=== PATIENT | female | born 1995 | race American Indian/Alaskan Native ===

== ENCOUNTER 2019-01-27 17:31 | Emergency (ER) | payer BC ==
[2019-01-27 17:55] VITALS: BP 125/98
--- NOTE | 2019-01-27 18:02 | Emergency Department Report ---
Blank Doc - Documentation Documentation: c/o vaginal discharge with odor and possible preg This initial assessment diagnostic orders/clinical plan/treatment (s) is/Are subject change based on patient's health status, clinical progression and re- assessment by fellow clinical providers in the ED. Further treatment and work-up at subsequent clinical providers discretion. Patient/guardians urged not to elope from their condition may be serious if not clinically assessed and managed. Initial order include:
[2019-01-27 18:36] LABS: Bilirubin,Urine NEG (Negative); Blood,Urine NEG (Negative); Color,Urine Straw (Yellow); Protein,Urine <15 mg/dL mg/dL (Negative); Urobilinogen,Urine < 2.0 mg/dL (<2.0)
[2019-01-27 18:38] LABS: HCG Qualitative,Urine Negative (Negative)
--- NOTE | 2019-01-27 21:04 | Emergency Department Report ---
ED Female HPI - General Chief complaint: Urogenital-Female Stated complaint: ABD/VAGINAL ODOR/PAIN Time Seen by Provider: 01/27/19 19:56 Source: patient Mode of arrival: Ambulatory Limitations: No Limitations - History of Present Illness Initial comments: Patient is 23 y/o aaf who presents for vaginal discharge white thick malodorous x 5 days pt states no concern for STD as she has been with same partner for past 5 yrs , pt is G2, P!, A1 ectopic , LMP 2 weeks ago, there is no abdominal pain no n/v no fever or chills no back pain no dysuria frequency or urgency. Complaint: vaginal discharge Onset/Timin -: days(s) Severity scale (0 -10): 3 Quality: other (irritation ) Consistency: constant Improves with: none Worsens with: none Are you Now?: No Last Menstrual Period: 01/12/19 EDC: 10/19/19 Associated Symptoms: vaginal discharge - Related Data Sexually active: Yes : 2 Para: 1 A: 1 (ectopic ) Previous Rx's Medication Instructions Recorded Last Taken Type Ibuprofen 800 mg PO TID PRN #30 tablet 01/27/19 Unknown Rx metroNIDAZOLE [Flagyl] 500 mg PO BID 10 Days #20 tab 01/27/19 Unknown Rx Allergies Allergy/AdvReac Type Severity Reaction Status Date / Time No Known Allergies Allergy Verified 01/27/19 17:34 ED Review of Systems ROS: Stated complaint: ABD/VAGINAL ODOR/PAIN Other details as noted in HPI Constitutional: denies: chills, fever Eyes: denies: eye pain, eye discharge, vision change ENT: denies: ear pain, throat pain Respiratory: denies: cough, shortness of breath, wheezing Cardiovascular: denies: chest pain, palpitations Endocrine: no symptoms reported Gastrointestinal: denies: abdominal pain, nausea, diarrhea Genitourinary: discharge (white thick malodorous ). denies: urgency, dysuria, frequency, hematuria, abnormal menses, dyspareunia Musculoskeletal: denies: back pain, joint swelling, arthralgia Skin: denies: rash, lesions Neurological: denies: headache, weakness, paresthesias Psychiatric: denies: anxiety, depression Hematological/Lymphatic: denies: easy bleeding, easy bruising ED Past Medical Hx - Past Medical History Previous Medical History?: No - Surgical History Additional Surgical History: D&C - Social History Smoking Status: Never Smoker Substance Use Type: Alcohol - Medications Home Medications: Home Medications Medication Instructions Recorded Confirmed Last Taken Type Ibuprofen 800 mg PO TID PRN #30 tablet 01/27/19 Unknown Rx metroNIDAZOLE [Flagyl] 500 mg PO BID 10 Days #20 tab 01/27/19 Unknown Rx ED Physical Exam - General Limitations: No Limitations General appearance: alert, in no apparent distress - Head Head exam: Present: atraumatic, normocephalic - Eye Eye exam: Present: normal appearance - ENT ENT exam: Present: mucous membranes moist - Neck Neck exam: Present: normal inspection - Respiratory Respiratory exam: Present: normal lung sounds bilaterally - GI/Abdominal GI/Abdominal exam: Present: soft, normal bowel sounds. Absent: distended, tenderness, rebound, bruit, hernia - Rectal Rectal exam: Present: deferred - External exam: Present: normal external exam Speculum exam: Present: erythema, vaginal discharge (white thick malodorous ). Absent: cervical discharge, vaginal bleeding, foreign body, tissue, laceration Bi-manual exam: Present: normal bi-manual exam. Absent: cervical motion tendernes, adnexal tenderness, adnexal mass, uterine enlargement, uterine tenderness - Extremities Exam Extremities exam: Present: normal inspection, full ROM, normal capillary refill. Absent: tenderness, pedal edema, joint swelling, calf tenderness - Back Exam Back exam: Present: normal inspection, full ROM. Absent: tenderness, CVA tenderness (R), CVA tenderness (L), rash noted - Neurological Exam Neurological exam: Present: alert, oriented X3 - Psychiatric Psychiatric exam: Present: normal affect, normal mood - Skin Skin exam: Present: warm, dry, intact, normal color. Absent: rash ED Course Vital Signs 01/27/19 17:53 Temperature 98 F Pulse Rate 75 Respiratory 20 Rate Blood Pressure 125/98 O2 Sat by Pulse 100 Oximetry ED Medical Decision Making - Lab Data Labs 01/27/19 17:34 Urine Color Straw Urine Turbidity Clear Urine pH 7.0 Ur Specific [place] 1.010 Urine Protein <15 mg/dl Urine Glucose (UA) Neg Urine Ketones Neg Urine Blood Neg Urine Nitrite Neg Urine Bilirubin Neg Urine Urobilinogen < 2.0 Ur Leukocyte Esterase Tr Urine WBC (Auto) 1.0 Urine RBC (Auto) 0.0 U Epithel Cells (Auto) 1.0 Urine HCG, Qual Negative Wet prep normal , no clues, no Trich, - Medical Decision Making UA normal, Wet prep normal, HCG: negative, exam: mild white thick vaginal discharge with moderate erythema no CMT pain . plan : Flagyl 500 mg po bid x 10 days follow up with pcp in 7-10 days pt verbalized agreement with same, will dc to home with rx for flagyl 1gm daily. Critical care attestation.: If time is entered above; I have spent that time in minutes in the direct care of this critically ill patient, excluding procedure time. ED Disposition Clinical Impression: Vaginitis Qualifiers: Chronicity: acute Qualified Code(s): N76.0 - Acute vaginitis Disposition: DC-01 TO HOME OR SELFCARE Is pt being admited?: No Does the pt Need Aspirin: No Condition: Stable Instructions: Vaginitis (ED) Prescriptions: Ibuprofen 800 mg PO TID PRN #30 tablet PRN Reason: Pain metroNIDAZOLE [Flagyl] 500 mg PO BID 10 Days #20 tab Referrals: DAVID ETRESA MD [Primary Care Provider] - 3-5 Days Forms: Work/School Release Form(ED) Time of Disposition: 21:42
== END 2019-01-27 21:50 | disposition home or self-care (01) ==
LOC: ED 17:31
DX: N76.0 Acute vaginitis (principal)
CPT/HCPCS: 81001; 81025; 87210; 87591

== ENCOUNTER 2019-02-08 13:48 | Emergency (ER) | payer BC ==
[2019-02-08 13:56] VITALS: BP 134/84
--- NOTE | 2019-02-08 13:59 | Emergency Department Report ---
Blank Doc - Documentation Documentation: 23 y/o with constipation and abdominal pain since thursday. no fever or diarrhea no dysuria
[2019-02-08 14:34] LABS: Bacteria,Urine 1+ /HPF (Negative); Bilirubin,Urine NEG (Negative); Blood,Urine NEG (Negative); Color,Urine Straw (Yellow); Protein,Urine <15 mg/dL mg/dL (Negative); Urobilinogen,Urine < 2.0 mg/dL (<2.0)
[2019-02-08 14:37] LABS: HCG Qualitative,Urine Negative (Negative)
--- NOTE | 2019-02-08 15:18 | XRay Report ---
ABDOMINAL SERIES: History: Constipation, abdominal pain. Erect chest film shows no acute or significant changes involving the heart or lung davidson. There is no evidence of free air beneath the diaphragms. The gas pattern within the abdomen is unremarkable. There is no evidence of bowel dilatation, significant air-fluid levels, or masses. Organ shadows are unremarkable. IMPRESSION: Abdominal series within normal limits.
--- NOTE | 2019-02-08 16:45 | Emergency Department Report ---
ED Abdominal Pain HPI - General Chief Complaint: Abdominal Pain Stated Complaint: ABD PAIN Time Seen by Provider: 02/08/19 13:57 Source: patient Mode of arrival: Ambulatory Limitations: No Limitations - History of Present Illness Initial Comments: Pt is a 23 yo female who presents to the ED with c/o generalized abdominal cramping that began three days ago. The patient states she has been feeling constipation or having a difficult time having a BM. She denies any N/V/D, decreased appetite, fever, urinary sx, vaginal itching, vaginal burning, discolored or foul odor vaginal discharge. The patient does have a PCP but has not seen them. She has not taken anything for the abdominal pain or the constipation. Severity scale (0 -10): 0 - Related Data Previous Rx's Medication Instructions Recorded Last Taken Type Ibuprofen 800 mg PO TID PRN #30 tablet 01/27/19 Unknown Rx Dicyclomine [Bentyl] 10 mg PO QID #20 capsule 02/08/19 Unknown Rx Docusate Sodium [Colace] 100 mg PO BID PRN #20 capsule 02/08/19 Unknown Rx Simethicone [Gas Relief] 125 mg PO DAILY PRN #20 capsule 02/08/19 Unknown Rx Allergies Allergy/AdvReac Type Severity Reaction Status Date / Time No Known Allergies Allergy Verified 02/08/19 13:50 ED Review of Systems ROS: Stated complaint: ABD PAIN Other details as noted in HPI Comment: All other systems reviewed and negative ED Past Medical Hx - Past Medical History Previous Medical History?: No - Surgical History Additional Surgical History: D&C - Social History Smoking Status: Never Smoker Substance Use Type: None - Medications Home Medications: Home Medications Medication Instructions Recorded Confirmed Last Taken Type Ibuprofen 800 mg PO TID PRN #30 tablet 01/27/19 Unknown Rx Dicyclomine [Bentyl] 10 mg PO QID #20 capsule 02/08/19 Unknown Rx Docusate Sodium [Colace] 100 mg PO BID PRN #20 capsule 02/08/19 Unknown Rx Simethicone [Gas Relief] 125 mg PO DAILY PRN #20 capsule 02/08/19 Unknown Rx ED Physical Exam - General Limitations: No Limitations General appearance: alert, in no apparent distress, other (pt is eating cheetohs and drinking a drink from [employer], non toxic appearing) - Head Head exam: Present: atraumatic, normocephalic - Eye Eye exam: Present: normal appearance - ENT ENT exam: Present: normal exam - Respiratory Respiratory exam: Present: normal lung sounds bilaterally. Absent: respiratory distress, wheezes, rales, rhonchi, stridor, chest wall tenderness, accessory muscle use, decreased breath sounds, prolonged expiratory - Cardiovascular Cardiovascular Exam: Present: regular rate, normal rhythm, normal heart sounds. Absent: systolic murmur, rubs, gallop - GI/Abdominal GI/Abdominal exam: Present: soft, normal bowel sounds. Absent: distended, tenderness, guarding, rebound, rigid, mass, hernia - Back Exam Back exam: Absent: CVA tenderness (R), CVA tenderness (L) - Neurological Exam Neurological exam: Present: alert, oriented X3 - Psychiatric Psychiatric exam: Present: normal affect, normal mood - Skin Skin exam: Present: warm, dry, intact ED Course Vital Signs 02/08/19 13:55 Temperature 98.1 F Pulse Rate 66 Respiratory 14 Rate Blood Pressure 134/84 O2 Sat by Pulse 99 Oximetry ED Medical Decision Making - Medical Decision Making Pt presents to the ED with c/o generalized abdominal pain that began a few days ago. Pt also has associated constipation and difficulty having BM due to her BM being hard. Abdominal exam is completely benign. CXR/abdominal XR: no acute process. Will give pt tx for indigestion, gas, constipation sx. Advised to follow up with PCP in the next 2-3 days. Discussed with pt to follow up with GI doctor if continuing to have abdominal pain. Return to ED if any new or worsening symptoms. Critical care attestation.: If time is entered above; I have spent that time in minutes in the direct care of this critically ill patient, excluding procedure time. ED Disposition Clinical Impression: Abdominal pain Qualifiers: Abdominal location: generalized Qualified Code(s): R10.84 - Generalized abdominal pain Constipation Qualifiers: Constipation type: unspecified constipation type Qualified Code(s): K59.00 - Constipation, unspecified Disposition: TO HOME OR SELFCARE Is pt being admited?: No Does the pt Need Aspirin: No Condition: Stable Instructions: Constipation (ED), High Fiber Diet (ED), Abdominal Pain (ED) Additional Instructions: Follow up with your primary care doctor in the next 2-3 days. Follow up with GI doctor if continue to have abdominal pain. Return to the ED for any new or worsening symptoms. Prescriptions: Dicyclomine [Bentyl] 10 mg PO QID #20 capsule Docusate Sodium [Colace] 100 mg PO BID PRN #20 capsule PRN Reason: Constipation Simethicone [Gas Relief] 125 mg PO DAILY PRN #20 capsule PRN Reason: Gas Pain Referrals: DORIAN PRECIADO MD [Primary Care Provider] - 2-3 Days Forms: Work/School Release Form(ED) Time of Disposition: 16:45 Print Language: ICELANDIC
== END 2019-02-08 17:07 | disposition home or self-care (01) ==
LOC: ED 13:48
DX: K59.00 Constipation, unspecified (principal)
CPT/HCPCS: 74022; 81001; 81025

== ENCOUNTER 2019-05-09 12:55 | Emergency (ER) | payer BC ==
--- NOTE | 2019-05-09 13:17 | Emergency Department Report ---
Blank Doc - Documentation Documentation: This is a 23-year-old female that presents with vaginal bleeding and pelvic pa in. Unsure if . This initial assessment/diagnostic orders/clinical plan/treatment(s) is/are subject to change based on patient's health status, clinical progression and re- assessment by fellow clinical providers in the ED. Further treatment and workup at subsequent clinical providers discretion. Patient/guardians urged not to elope from the ED as their condition may be serious if not clinically assessed and managed. Initial orders include: 1- Patient sent to [facility] for further evaluation and treatment 2-UA 3- labs
[2019-05-09 14:17] LABS: Basophils % (Auto) 0.8 % (0.0-1.8); Eosinophils % (Auto) 0.4 % (0.0-4.3); Hematocrit 38.2 % (30.3-42.9); Hemoglobin 13.1 gm/dl (10.1-14.3); Lymphocytes # (Auto) 1.4 K/mm3 (1.2-5.4); Lymphocytes % (Auto) 28.3 % (13.4-35.0); Mean Corpuscular HGB Conc 34 % (30-34); Mean Corpuscular Volume 91 fl (79-97); Monocytes # (Auto) 0.3 K/mm3 (0.0-0.8); Monocytes % (Auto) 6.6 % (0.0-7.3); Platelet Count 344 K/mm3 (140-440); Red Blood Count 4.22 M/mm3 (3.65-5.03); Red Cell Distribution Width 12.8 % (13.2-15.2)
[2019-05-09 14:35] LABS: BUN/Creatinine Ratio 11; Blood Urea Nitrogen 8 mg/dL (7-17); Calcium 9.5 mg/dL (8.4-10.2); Hemolysis Index 18
--- NOTE | 2019-05-09 16:49 | Emergency Department Report ---
ED Dysuria HPI - HPI Chief Complaint: Vaginal Bleeding Stated Complaint: ABD PAIN/DISCHARGE/POSS PREG Time Seen by Provider: 05/09/19 13:16 Duration: 2 Days Location of Discomfort: Suprapubic Severity: Mild Symptoms: Dysuria: No, Frequency: No, Suprapubic Pain: No, Flank Pain: No, Fever: No, Hematuria: No, Abdominal Pain: No, Previous UTI's: No Other History: Patient is a 23-year-old -[place] female who comes to the ER today concerned that she is . Last menstrual cycle was 5-1. Patient is having dark old bloody discharge. She has no pain. No nausea and vomiting. She's never been . She has an implant in her arm that is due to come out. ED Review of Systems ROS: Stated complaint: ABD PAIN/DISCHARGE/POSS PREG Other details as noted in HPI Comment: All other systems reviewed and negative ED Past Medical Hx - Past Medical History Previous Medical History?: No - Surgical History Past Surgical History?: Yes Additional Surgical History: D&C - Social History Smoking Status: Never Smoker Substance Use Type: None - Medications Home Medications: Home Medications Medication Instructions Recorded Confirmed Last Taken Type Ibuprofen 800 mg PO TID PRN #30 tablet 01/27/19 Unknown Rx Dicyclomine [Bentyl] 10 mg PO QID #20 capsule 02/08/19 Unknown Rx Docusate Sodium [Colace] 100 mg PO BID PRN #20 capsule 02/08/19 Unknown Rx Simethicone [Gas Relief] 125 mg PO DAILY PRN #20 capsule 02/08/19 Unknown Rx Dysuria Exam - Exam General: Vital signs noted. No distress. Alert and acting appropriately. Exam: Yes Moist Mucous Membranes, No CVA Tenderness, No Abdominal Tenderness, No Rigidity or Guarding Labs: Lab Results 05/09/19 05/09/19 05/09/19 Range/Units 13:28 13:28 13:28 WBC 5.1 (4.5-11.0) K/mm3 RBC 4.22 (3.65-5.03) M/mm3 Hgb 13.1 (10.1-14.3) gm/dl Hct 38.2 (30.3-42.9) % MCV 91 (79-97) fl MCH 31 (28-32) pg MCHC 34 (30-34) % RDW 12.8 L (13.2-15.2) % Plt Count 344 (140-440) K/mm3 Lymph % (Auto) 28.3 (13.4-35.0) % [place] % (Auto) 6.6 (0.0-7.3) % Eos % (Auto) 0.4 (0.0-4.3) % Baso % (Auto) 0.8 (0.0-1.8) % Lymph # 1.4 (1.2-5.4) K/mm3 [place] # 0.3 (0.0-0.8) K/mm3 Eos # 0.0 (0.0-0.4) K/mm3 Baso # 0.0 (0.0-0.1) K/mm3 Seg Neutrophils % 63.9 (40.0-70.0) % Seg Neutrophils # 3.3 (1.8-7.7) K/mm3 Sodium (137-145) mmol/L Potassium (3.6-5.0) mmol/L Chloride (98-107) mmol/L Carbon Dioxide (22-30) mmol/L Anion Gap mmol/L BUN (7-17) mg/dL Creatinine (0.7-1.2) mg/dL Estimated GFR ml/min BUN/Creatinine Ratio % Glucose (65-100) mg/dL Calcium (8.4-10.2) mg/dL HCG, Quant < 2 (0-4) mIU/mL Blood Type O POSITIVE Antibody Screen Negative 05/09/19 Range/Units 13:28 WBC (4.5-11.0) K/mm3 RBC (3.65-5.03) M/mm3 Hgb (10.1-14.3) gm/dl Hct (30.3-42.9) % MCV (79-97) fl MCH (28-32) pg MCHC (30-34) % RDW (13.2-15.2) % Plt Count (140-440) K/mm3 Lymph % (Auto) (13.4-35.0) % [place] % (Auto) (0.0-7.3) % Eos % (Auto) (0.0-4.3) % Baso % (Auto) (0.0-1.8) % Lymph # (1.2-5.4) K/mm3 [place] # (0.0-0.8) K/mm3 Eos # (0.0-0.4) K/mm3 Baso # (0.0-0.1) K/mm3 Seg Neutrophils % (40.0-70.0) % Seg Neutrophils # (1.8-7.7) K/mm3 Sodium 139 (137-145) mmol/L Potassium 4.7 (3.6-5.0) mmol/L Chloride 101.7 (98-107) mmol/L Carbon Dioxide 25 (22-30) mmol/L Anion Gap 17 mmol/L BUN 8 (7-17) mg/dL Creatinine 0.7 (0.7-1.2) mg/dL Estimated GFR > 60 ml/min BUN/Creatinine Ratio 11 % Glucose 81 (65-100) mg/dL Calcium 9.5 (8.4-10.2) mg/dL HCG, Quant (0-4) mIU/mL Blood Type Antibody Screen ED Medical Decision Making - Lab Data Result diagrams: 05/09/19 13:28 05/09/19 13:28 - Medical Decision Making Lab Results 05/09/19 05/09/19 05/09/19 Range/Units 13:28 13:28 13:28 WBC 5.1 (4.5-11.0) K/mm3 RBC 4.22 (3.65-5.03) M/mm3 Hgb 13.1 (10.1-14.3) gm/dl Hct 38.2 (30.3-42.9) % MCV 91 (79-97) fl MCH 31 (28-32) pg MCHC 34 (30-34) % RDW 12.8 L (13.2-15.2) % Plt Count 344 (140-440) K/mm3 Lymph % (Auto) 28.3 (13.4-35.0) % [place] % (Auto) 6.6 (0.0-7.3) % Eos % (Auto) 0.4 (0.0-4.3) % Baso % (Auto) 0.8 (0.0-1.8) % Lymph # 1.4 (1.2-5.4) K/mm3 [place] # 0.3 (0.0-0.8) K/mm3 Eos # 0.0 (0.0-0.4) K/mm3 Baso # 0.0 (0.0-0.1) K/mm3 Seg Neutrophils % 63.9 (40.0-70.0) % Seg Neutrophils # 3.3 (1.8-7.7) K/mm3 Sodium (137-145) mmol/L Potassium (3.6-5.0) mmol/L Chloride (98-107) mmol/L Carbon Dioxide (22-30) mmol/L Anion Gap mmol/L BUN (7-17) mg/dL Creatinine (0.7-1.2) mg/dL Estimated GFR ml/min BUN/Creatinine Ratio % Glucose (65-100) mg/dL Calcium (8.4-10.2) mg/dL HCG, Quant < 2 (0-4) mIU/mL Blood Type O POSITIVE Antibody Screen Negative 05/09/19 Range/Units 13:28 WBC (4.5-11.0) K/mm3 RBC (3.65-5.03) M/mm3 Hgb (10.1-14.3) gm/dl Hct (30.3-42.9) % MCV (79-97) fl MCH (28-32) pg MCHC (30-34) % RDW (13.2-15.2) % Plt Count (140-440) K/mm3 Lymph % (Auto) (13.4-35.0) % [place] % (Auto) (0.0-7.3) % Eos % (Auto) (0.0-4.3) % Baso % (Auto) (0.0-1.8) % Lymph # (1.2-5.4) K/mm3 [place] # (0.0-0.8) K/mm3 Eos # (0.0-0.4) K/mm3 Baso # (0.0-0.1) K/mm3 Seg Neutrophils % (40.0-70.0) % Seg Neutrophils # (1.8-7.7) K/mm3 Sodium 139 (137-145) mmol/L Potassium 4.7 (3.6-5.0) mmol/L Chloride 101.7 (98-107) mmol/L Carbon Dioxide 25 (22-30) mmol/L Anion Gap 17 mmol/L BUN 8 (7-17) mg/dL Creatinine 0.7 (0.7-1.2) mg/dL Estimated GFR > 60 ml/min BUN/Creatinine Ratio 11 % Glucose 81 (65-100) mg/dL Calcium 9.5 (8.4-10.2) mg/dL HCG, Quant (0-4) mIU/mL Blood Type Antibody Screen preg test negative. Patient referred to her CREDIT CARD CLERK for evaluation due to her implant which she states should be coming out any time now. They told her it would last 3 years then when she went to have it removed a total go for years. Critical care attestation.: If time is entered above; I have spent that time in minutes in the direct care of this critically ill patient, excluding procedure time. ED Disposition Clinical Impression: Abnormal menses Disposition: TO HOME OR SELFCARE Is pt being admited?: No Does the pt Need Aspirin: No Condition: Stable Additional Instructions: follow up obgyn Referrals: DWIGHT NELSON MD [Primary Care Provider] - 3-5 Days CHACORTA LOPEZ MD [Staff Physician] - 3-5 Days Time of Disposition: 16:49
== END 2019-05-09 16:56 | disposition home or self-care (01) ==
LOC: ED 12:55
DX: N93.9 Abnormal uterine and vaginal bleeding, unspecified (principal); Z79.899 Other long term (current) drug therapy
CPT/HCPCS: 36415; 80048; 84702; 85025; 86850; 86900; 86901; 99283